=== PATIENT | female | born 1995 | race African-American/Black ===

== ENCOUNTER 2019-05-12 07:07 | Emergency (ER) | payer MEDICAID ==
[2019-05-12 07:26] VITALS: BP 126/92
--- NOTE | 2019-05-12 07:57 | ED Physician Documentation ---
PD HPI NVD - Stated complaint Stated Complaint: STOMACH PX - Chief complaint Chief Complaint: Abd Pain - History obtained from History obtained from: Patient - History of Present Illness Timing - onset: How many months ago (2) Timing - duration: Months (2) Timing - details: Intermittant, Waxing and waning (abdominal cramping, diarrhea and nausea and vomiting) Associated symptoms: No: Fever, Abdominal pain, Chest pain, Hematemesis, Melena, Hematochezia Contributing factors: No: Sick contact, Bad food, Travel, Recent antibiotics Improved by: Other (nothing, used to improve with imodium but that is no longer working for her) Worsened by: Other (every morning) Similar symptoms before: Work up / diagnostics (labs, test, ultrasound of abdomen) Recently seen: Not recently seen - Treatment prior to arrival Treatment prior to arrival: has tried zofran, imodium, antibiotics, dietary modifications Review of Systems Ten Systems: 10 systems reviewed and negative Constitutional: denies: Fever, Chills Cardiac: denies: Chest pain / pressure Respiratory: denies: Dyspnea GI: reports: Abdominal Pain, Nausea, Vomiting, Diarrhea. denies: Hematemesis, Bloody / black stool Skin: reports: Reviewed and negative Endocrine: reports: Reviewed and negative Immunocompromised: reports: Reviewed and negative PD PAST MEDICAL HISTORY - Past Medical History Past Medical History: Yes Psych: Depression - Present Medications Home Medications: Ambulatory Orders Medication Instructions Recorded Confirmed Dicyclomine [Bentyl] 10 mg PO QID PRN #30 capsule 05/12/19 Ondansetron Odt [Zofran Odt] 4 mg PO PRN PRN 05/12/19 05/12/19 Promethazine [Phenergan] 25 mg PO Q6H PRN #15 tab 05/12/19 Sertraline HCl 125 mg PO DAILY 05/12/19 05/12/19 - Allergies Allergies/Adverse Reactions: Allergies Allergy/AdvReac Type Severity Reaction Status Date / Time No Known Drug Allergies Allergy Verified 05/12/19 07:21 - Social History Does the pt smoke?: No Smoking Status: Never smoker PD ED PE NORMAL - Vitals Vital signs reviewed: Yes - General General: Alert and oriented X 3, No acute distress, Well developed/nourished - HEENT HEENT: Atraumatic, Pharynx benign - Neck Neck: Supple, no meningeal sign - Cardiac Cardiac: RRR - Respiratory Respiratory: No respiratory distress - Abdomen Abdomen: Soft, Non tender, Non distended - Female Female : Deferred - Rectal Rectal: Deferred - Derm Derm: Normal color, Warm and dry, No rash - Extremities Extremities: No deformity, No tenderness to palpate, Normal ROM s pain, No edema - Neuro Neuro: Alert and oriented X 3 Eye Opening: Spontaneous Motor: Obeys Commands Verbal: Oriented GCS Score: 15 - Psych Psych: Normal mood, Normal affect Results - Vitals Vitals: Vital Signs - 24 hr 05/12/19 07:22 Temperature 36.8 C Heart Rate 74 Respiratory 16 Rate Blood Pressure 126/92 H O2 Saturation 100 Oxygen O2 Source Room air PD MEDICAL DECISION MAKING - ED course Complexity details: considered differential, d/w patient, d/w family ED course: ddx- ibs, ibd, celiac disease, PUD, parasitic disease 24 y/o F with ongoing diarrhea, abdominal cramping, nausea and vomiting for 2 months with so far negative workup by PCP including basic labs, stool studies, h plyori. Pt likely needs GI referral or trial of empiric therapies for IBS. She has a family hx of IBS. I suspect this may be IBS. Regardless given chronicity doubt utility of emergent labs or imaging. Her abdomen is benign today her vitals are stable. She was provided the name of a GI specialist to discuss with her PCP. Departure - Departure Disposition: 01 Home, Self Care Clinical Impression: Chronic diarrhea of unknown origin Condition: Stable Record reviewed to determine appropriate education?: Yes Instructions: ED Diet Vomiting Diarrhea Follow-Up: Breanna Tovar MD [Provider Admit Priv/Credential] - Prescriptions: Dicyclomine [Bentyl] 10 mg PO QID PRN #30 capsule PRN Reason: Abdominal Pain Promethazine [Phenergan] 25 mg PO Q6H PRN #15 tab PRN Reason: Nausea / Vomiting Comments: You can take bentyl for abdominal cramping or pain. You can take phenergan as needed for nausea and vomiting. You should talk to your doctor about a GI referral. You may consider testing for Celiac disease or IBD. This very well could be IBS in which case treatment with medications like Lotronex for IBS. This medication needs to be prescribed by your PCP or a GI doctor.
== END 2019-05-12 08:21 | disposition home or self-care (01) ==
LOC: ED 07:07
DX: R19.7 Diarrhea, unspecified (principal); R11.2 Nausea with vomiting, unspecified; R10.9 Unspecified abdominal pain; Z83.79 Family history of other diseases of the digestive system
CPT/HCPCS: 99282; 99284

== ENCOUNTER 2022-09-24 17:02 | Emergency (ER) | payer MEDICAID, OTHER ==
[2022-09-24 18:48] LABS: BILIRUBIN,URINE NEGATIVE (NEGATIVE); GLUCOSE, URINE (UA) NEGATIVE (NEGATIVE); KETONES,URINE (UA) NEGATIVE (NEGATIVE); LEUKOCYTE ESTERASE, URINE NEGATIVE (NEGATIVE); NITRITE,URINE NEGATIVE (NEGATIVE); OCCULT BLOOD,URINE TRACE-INTA (NEGATIVE); PROTEIN,URINE NEGATIVE (NEGATIVE); UROBILINOGEN,URINE 0.2 (NORMAL) E.U./dL (NORMAL)
[2022-09-24 18:49] LABS: CLARITY,URINE CLEAR (CLEAR); HCG UR QUAL NEGATIVE
[2022-09-24] MEDS ORDERED: PROCHLORPERAZINE 10 MG/2 ML VIAL IVP STA (19:12)
[2022-09-24] MEDS ORDERED: SODIUM CHLORIDE 0.9% 1,000 ML IV STA (19:15)
[2022-09-24] MEDS ORDERED: diphenhydrAMINE INJ 50 MG/ML VIAL IVP STA (19:15)
--- NOTE | 2022-09-24 19:18 | ED Physician Documentation ---
History of Present Illness - Stated complaint Stated Complaint: MIGRAINE - Chief complaint Chief Complaint: Neuro - Additonal information Additional information: 27-year-old female presents emergency department for evaluation of a headache t hat began 4 days ago. 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 She reports that over the course of the afternoon got steadily worse therefore she left work early and vomited on her way home. Since then she has vomited at least 2-3 more times. This was not a sudden onset headache however she denies any history of headaches preceding this. There have been no fevers though she reports she is recovering from a cold. She is not anticoagulated. She takes no oral contraceptives. No family history of migraines. No focal neurodeficits. Patient does endorse light and noise sensitivity. She is taken Excedrin without relief of symptoms. Review of Systems Constitutional: denies: Fever, Chills, Myalgias, Fatigue Eyes: reports: Photophobia Nose: reports: Reviewed and negative Cardiac: reports: Reviewed and negative Respiratory: reports: Reviewed and negative Neurologic: reports: Headache Psychiatric: reports: Reviewed and negative PD PAST MEDICAL HISTORY - Past Medical History Psych: Depression - Present Medications Home Medications: Ambulatory Orders Medication Instructions Recorded Confirmed Sertraline HCl 100 mg PO DAILY 05/12/19 09/24/22 buPROPion [Wellbutrin Sr] 100 mg PO DAILY 09/24/22 09/24/22 - Allergies Allergies/Adverse Reactions: Allergies Allergy/AdvReac Type Severity Reaction Status Date / Time No Known Drug Allergies Allergy Verified 05/12/19 07:21 - Social History Does the pt smoke?: No Smoking Status: Never smoker PD ED PE NORMAL - General General: Alert and oriented X 3, No acute distress, Well developed/nourished - HEENT HEENT: Atraumatic, Moist mucous membranes - Neck Neck: Supple, no meningeal sign, No adenopathy - Cardiac Cardiac: RRR, No murmur - Respiratory Respiratory: No respiratory distress, Clear bilaterally - Abdomen Abdomen: Normal bowel sounds, Soft - Back Back: No CVA TTP, No spinal TTP - Derm Derm: Normal color, Warm and dry, No rash - Extremities Extremities: No deformity, No tenderness to palpate, Normal ROM s pain, No edema - Neuro Neuro: Alert and oriented X 3, mender knit goods 2-12 intact Eye Opening: Spontaneous Motor: Obeys Commands Verbal: Oriented GCS Score: 15 Results - Vitals Vitals: Vital Signs - 24 hr 09/24/22 09/24/22 17:23 19:26 Temperature 36.5 C Heart Rate 74 86 Respiratory 18 14 Rate Blood Pressure 130/80 105/78 O2 Saturation 100 99 Oxygen O2 Source Room air - Labs Labs: Laboratory Tests 09/24/22 18:30 Urine Color YELLOW Urine Clarity CLEAR Urine pH 6.0 Ur Specific [place] 1.015 Urine Protein NEGATIVE Urine Glucose (UA) NEGATIVE Urine Ketones NEGATIVE Urine Occult Blood TRACE-INTA Urine Nitrite NEGATIVE Urine Bilirubin NEGATIVE Urine Urobilinogen 0.2 (NORMAL) Ur Leukocyte Esterase NEGATIVE Ur Microscopic Review NOT INDICATED Urine Culture Comments NOT INDICATED Urine HCG, Qual NEGATIVE PD MEDICAL DECISION MAKING - ED course Complexity details: reviewed results, re-evaluated patient, considered differential, d/w patient ED course: 27-year-old female presents emergency department for evaluation of headache that began about 4 days ago. No history of headaches or migraine variants in the past and this was not sudden onset. She took Excedrin without relief. She did have some associated light and noise sensitivity. On presentation to the emergency department she appeared well and had no focal neurodeficits. Deferred CT imaging as my suspicion for subarachnoid was rather low. She is recently been getting over head cold and she has no findings to suggest meningitis. Patient does have an IUD in place and is currently completing a cycle of cramping which she associates with her IUD. She reports that she has been told that now needs to be removed and/or replaced. Here in the ER she was given a dose of Compazine and Benadryl with moderate improvement in symptoms. This was then followed by a dose of Decadron. I am discharging the patient home in stable condition to follow closely with her primary care provider for longer-term evaluation and management of headaches which may include rediscussion of OCP use. Emergent worrisome return precautions discussed. Departure - Departure Disposition: 01 Home, Self Care Clinical Impression: Headache Qualifiers: Headache type: unspecified Headache chronicity pattern: acute headache Intractability: not intractable Qualified Code(s): R51.9 - Headache, unspecified Condition: Stable Record reviewed to determine appropriate education?: Yes Instructions: ED Headache Migraine Comments: Michel is seen today in the emergency department because you developed a headache about 4 days ago. Here in the ER your neurological exam is unremarkable and normal. You may be having a headache as a side effect of your cycle. You also are at the 6-year limit for your IUD and would potentially benefit from rediscussion of hormone use to prevent If these were to be related to any type of cycle. Here in the emergency department we did give you some Benadryl and Compazine which seems to be improving the headache. We also gave you a dose of Decadron which should help prevent the headache from reoccurring if this is a migraine variant. In general I would recommend that you take 600 mg of ibuprofen with food 2-3 times a day for headaches or alternate with 500 mg of Tylenol. Return to the ER if you develop any worsening symptoms, have slurred speech, facial droop or sudden weakness in your arms or legs.
[2022-09-24] MEDS ORDERED: DEXAMETHASONE 10 MG/ML VIAL PO STA (20:01)
[2022-09-24] MEDS ORDERED: CHERRY SYRUP 10 ML UDC PO ONE (20:01)
[2022-09-24 20:13] VITALS: BP 125/69
== END 2022-09-24 20:20 | disposition home or self-care (01) ==
LOC: ED 17:02
DX: R51.9 Headache, unspecified (principal); Z97.5 Presence of (intrauterine) contraceptive device
CPT/HCPCS: 81003; 81025; 96361; 96374; 99282; 99284; A9270; J1200; 81001; 87086

== ENCOUNTER 2023-04-19 12:15 | Emergency (ER) | payer MEDICAID ==
[2023-04-19 12:41] LABS: BILIRUBIN,URINE NEGATIVE (NEGATIVE); GLUCOSE, URINE (UA) NEGATIVE (NEGATIVE); KETONES,URINE (UA) NEGATIVE (NEGATIVE); LEUKOCYTE ESTERASE, URINE NEGATIVE (NEGATIVE); NITRITE,URINE NEGATIVE (NEGATIVE); OCCULT BLOOD,URINE TRACE-INTA (NEGATIVE); PH,URINE 6.5 PH (5.0-7.5); PROTEIN,URINE NEGATIVE (NEGATIVE); UROBILINOGEN,URINE 0.2 (NORMAL) E.U./dL (NORMAL)
[2023-04-19 12:46] LABS: BASOPHILS % (AUTO) 0.2 %; EOSINOPHILS % (AUTO) 0.1 %; HCT - HEMATOCRIT 41.2 % (37.0-47.0); HGB - HEMOGLOBIN 13.9 g/dL (12.0-16.0); LYMPHOCYTES # (AUTO) 1.3 10^3/uL (1.5-3.5); LYMPHOCYTES % (AUTO) 14.4 %; MEAN CORPUSCULAR HEMOGLOBIN 31.5 pg (27.0-31.0); MEAN CORPUSCULAR HGB CONC 33.7 g/dL (32.0-36.0); MEAN CORPUSCULAR VOLUME 93.4 fL (81.0-99.0); MEAN PLATELET VOLUME 8.4 fL (7.9-10.8); MONOCYTES # (AUTO) 0.9 10^3/uL (0.0-1.0); MONOCYTES % (AUTO) 9.5 %; NEUTROPHILS # (AUTO) 6.9 10^3/uL (1.5-6.6); NEUTROPHILS % (AUTO) 75.5 %; PLT - PLATELET COUNT 346 10^3/uL (130-450); RED BLOOD COUNT 4.41 10^6/uL (4.20-5.40); RED CELL DISTRIBUTION WIDTH 12.4 % (12.0-15.0); WHITE BLOOD COUNT 9.1 x10^3/uL (4.8-10.8)
[2023-04-19 12:50] LABS: CLARITY,URINE CLEAR (CLEAR); HCG UR QUAL NEGATIVE
[2023-04-19 13:05] LABS: ALBUMIN 4.6 g/dL (3.2-5.5); ALBUMIN/GLOBULIN RATIO 1.3 (1.0-2.2); ALKALINE PHOSPHATASE 50 IU/L (42-121); ALT ALANINE AMINOTRANSFERASE 15 IU/L (10-60); AST ASPARTATE AMINOTRANSFERASE 19 IU/L (10-42); BILIRUBIN,TOTAL 0.6 mg/dL (0.2-1.0); BUN - BLOOD UREA NITROGEN < 5 mg/dL (6-20); CALCIUM 9.2 mg/dL (8.5-10.3); CARBON DIOXIDE - CO2 26 mmol/L (21-32); CHLORIDE 104 mmol/L (101-111); CREATININE 0.6 mg/dL (0.4-1.0); GFR - MDRD 145 (>89); GLUCOSE 122 mg/dL (70-100); LIPASE 26 U/L (22-51); POTASSIUM 3.4 mmol/L (3.5-5.0); SODIUM 138 mmol/L (135-145); TOTAL PROTEIN 8.1 g/dL (6.7-8.2)
--- NOTE | 2023-04-19 13:44 | ED Physician Documentation ---
PD HPI ABD PAIN - Stated complaint Stated Complaint: ABD PX,SHAKES,GEN WEAKNESS - Chief complaint Chief Complaint: Abd Pain - History obtained from History obtained from: Patient - History of Present Illness Timing - onset: How many days ago (10/19) Timing - duration: Days Timing - details: Abrupt onset (she had couple of shots of vodka and felt onset of nausea with vomiting shortly after (1-2 hours). however had some cramping abd pain and soft stool /diarrhea.), Still present (her vomiting has stopped but still nauseated. SOme look stools. Abd pain intermittent and diffuse crampy. She is concerned about the duration of symptoms and still feeling ill with attempting pO intake.) Quality: Cramping, Aching, Pain Location: All over / everywhere, Periumbilical Radiation: No: Lower back, Left flank, Right flank Improved by: No: Vomiting Worsened by: No: Eating, Breathing Associated symptoms: Nausea, Vomiting, Diarrhea. No: Fever, Dysuria Similar symptoms before: Has not had sx before Recently seen: Not recently seen Review of Systems Constitutional: denies: Fever, Chills, Myalgias Nose: denies: Rhinorrhea / runny nose, Congestion Throat: denies: Sore throat Cardiac: denies: Chest pain / pressure, Palpitations Respiratory: denies: Dyspnea, Cough PD PAST MEDICAL HISTORY - Past Medical History Cardiovascular: None Respiratory: None GI: None CLINICAL RESEARCH ASSOCIATE: None Psych: Depression - Present Medications Home Medications: Ambulatory Orders Medication Instructions Recorded Confirmed Sertraline HCl 100 mg PO DAILY 05/12/19 04/19/23 buPROPion [Wellbutrin Sr] 100 mg PO DAILY 09/24/22 04/19/23 Ondansetron Odt [Zofran] 4 mg TL Q6H PRN #10 tablet 04/19/23 - Allergies Allergies/Adverse Reactions: Allergies Allergy/AdvReac Type Severity Reaction Status Date / Time No Known Drug Allergies Allergy Verified 04/19/23 12:19 - Social History Does the pt smoke?: No Smoking Status: Never smoker PD ED PE NORMAL - Vitals Vital signs reviewed: Yes - General General: Alert and oriented X 3, No acute distress, Well developed/nourished - HEENT HEENT: Pharynx benign - Neck Neck: Supple, no meningeal sign, No adenopathy - Cardiac Cardiac: RRR, No murmur - Respiratory Respiratory: No respiratory distress - Abdomen Abdomen: Normal bowel sounds, Soft, Non tender, Non distended, No organomegaly - Derm Derm: Normal color, Warm and dry - Extremities Extremities: Normal ROM s pain - Neuro Neuro: Alert and oriented X 3, No motor deficit, Normal speech Results - Vitals Vitals: Vital Signs - 24 hr 04/19/23 04/19/23 04/19/23 12:19 13:58 15:00 Temperature 37.1 C 37.0 C Heart Rate 88 88 86 Respiratory 16 20 16 Rate Blood Pressure 136/76 H 116/72 118/70 O2 Saturation 98 100 100 Oxygen O2 Source Room air - Labs Labs: Laboratory Tests 04/19/23 04/19/23 04/19/23 12:35 12:42 12:42 WBC 9.1 RBC 4.41 Hgb 13.9 Hct 41.2 MCV 93.4 MCH 31.5 H MCHC 33.7 RDW 12.4 Plt Count 346 MPV 8.4 Neut # (Auto) 6.9 H Lymph # (Auto) 1.3 L [place] # (Auto) 0.9 Eos # (Auto) 0.0 Baso # (Auto) 0.0 Absolute Nucleated RBC 0.00 Nucleated RBC % 0.0 Sodium 138 Potassium 3.4 L Chloride 104 Carbon Dioxide 26 Anion Gap 8.0 BUN < 5 L Creatinine 0.6 Estimated GFR (MDRD) 145 Glucose 122 H Calcium 9.2 Total Bilirubin 0.6 AST 19 ALT 15 Alkaline Phosphatase 50 Total Protein 8.1 Albumin 4.6 Globulin 3.5 Albumin/Globulin Ratio 1.3 Lipase 26 Urine Color LIGHT YELLOW Urine Clarity CLEAR Urine pH 6.5 Ur Specific [place] 1.010 Urine Protein NEGATIVE Urine Glucose (UA) NEGATIVE Urine Ketones NEGATIVE Urine Occult Blood TRACE-INTA Urine Nitrite NEGATIVE Urine Bilirubin NEGATIVE Urine Urobilinogen 0.2 (NORMAL) Ur Leukocyte Esterase NEGATIVE Ur Microscopic Review NOT INDICATED Urine Culture Comments NOT INDICATED Urine HCG, Qual NEGATIVE PD Medical Decision Making - ED course Complexity details: considered differential (has GE type symptoms. Onset after some alochol with friends. However I don't think all the symptosm would come from that. Nause and vomiting most likely. Otherwise concern about infectious cause (such as viral GE). ), d/w patient ED course: she does not have any tenderness, and in particular no focal tenderrness RLQ. Shared ddecision with patient to not do testing at this time and treat syptoms. Departure - Departure Disposition: 01 Home, Self Care Clinical Impression: Nausea vomiting and diarrhea Condition: Stable Record reviewed to determine appropriate education?: Yes Instructions: ED Diet Vomiting Diarrhea Prescriptions: Ondansetron Odt [Zofran] 4 mg TL Q6H PRN #10 tablet PRN Reason: Nausea / Vomiting Comments: This sounds most likely a viral illness with the symptoms you have. It could have been irritated by the alcohol use. Clinically I do not get a sense of there being gallbladder or appendix issues at this time. I would suggest kind of bland food and frequent fluids. Ondansetron if needed for nausea. Add in some antacid such as Maalox or Mylanta. You can use [id number] Imodium if needed for diarrhea. I would anticipate improvement over the next couple of days. Rest as needed. I sent prescription for the ondansetron to the [facility] pharmacy in [place]. Recheck if not improved over the next 1 or 2 days. Recheck or return if you develop localized pain, repetitive vomiting, bloody stools, fever or other concerns. Forms: Activity restrictions Discharge Date/Time: 04/19/23 15:35
[2023-04-19] MEDS ORDERED: LOPERAMIDE 2 MG CAPSULE PO STA (14:19)
[2023-04-19] MEDS ORDERED: MAG HYDROX/AL HYDROX/SIMETH 30 ML UDC PO STA (14:19)
[2023-04-19] MEDS ORDERED: ONDANSETRON ODT 4 MG TABLET TL STA (14:19)
[2023-04-19 15:40] VITALS: BP 118/70
== END 2023-04-19 15:35 | disposition home or self-care (01) ==
LOC: ED 12:15
DX: R11.2 Nausea with vomiting, unspecified (principal); R19.7 Diarrhea, unspecified
CPT/HCPCS: 36415; 80053; 81003; 81025; 83690; 85025; 99283; 99284; A9270; Q0162; 81001; 87086

== ENCOUNTER 2023-04-21 06:17 | Emergency (ER) | payer MEDICAID ==
--- NOTE | 2023-04-21 07:06 | ED Physician Documentation ---
History of Present Illness - Stated complaint Stated Complaint: CHEST/ABD PX - Chief complaint Chief Complaint: Cardiac - Additonal information Additional information: Patient is 28-year-old female presenting to the emergency department with multiple complaints including abdominal pain, left-sided chest pain, constipation, tremulousness, nausea, generalized weakness. Symptoms of been ongoing x8 days. Was initially seen here 04/19. At that time had benign work-up. Returns today for persistent symptoms. Reports has had symptoms like this in the past but never this severe. States that they have been ongoing for greater than the last 10 years. Reports infrequent alcohol use but does report daily marijuana use. States was on sertraline but went off of this medication herself approximately 1 month ago. Does report that she tapered from 200 mg to 100 mg prior to discontinuing the medication. This could discontinuation was not in conjunction with her primary care doctor and she reports that her primary care doctor moved to [place] and she does not currently have a PCP. Otherwise she takes a Nexplanon implant but no other prescription medications or supplements. PD PAST MEDICAL HISTORY - Past Medical History Past Medical History: Yes Cardiovascular: None Respiratory: None GI: None DIRT SHOVELER: None Psych: Depression - Past Surgical History Past Surgical History: No - Present Medications Home Medications: Ambulatory Orders Medication Instructions Recorded Confirmed Pantoprazole Sodium [Protonix] 20 mg PO DAILY #30 tab 04/21/23 - Allergies Allergies/Adverse Reactions: Allergies Allergy/AdvReac Type Severity Reaction Status Date / Time No Known Drug Allergies Allergy Verified 04/21/23 06:34 - Social History Does the pt smoke?: No Smoking Status: Never smoker Does the pt drink ETOH?: No Does the pt have substance abuse?: No - Immunizations Immunizations are current?: Yes - POLST Patient has POLST: No PD ED PE NORMAL - Vitals Vital signs reviewed: Yes - General General: Alert and oriented X 3, No acute distress, Other (Anxious affect) - HEENT HEENT: Atraumatic - Neck Neck: Supple, no meningeal sign - Cardiac Cardiac: RRR - Respiratory Respiratory: No respiratory distress, Clear bilaterally - Abdomen Abdomen: Normal bowel sounds, Soft, Non tender - Female Female : Deferred - Rectal Rectal: Deferred - Back Back: No CVA TTP - Derm Derm: Normal color - Extremities Extremities: No deformity Results - Vitals Vitals: Vital Signs - 24 hr 0704/21/23 04/21/23 06:20 06:29 06:53 Temperature 36.8 C Heart Rate 92 81 Respiratory 16 16 Rate Blood Pressure 121/74 117/70 Blood Pressure 117/70 [Left] Blood Pressure 121/74 [Right] O2 Saturation 98 100 04/21/23 08:32 Temperature Heart Rate 80 Respiratory 10 L Rate Blood Pressure 108/71 Blood Pressure [Left] Blood Pressure [Right] O2 Saturation 99 Oxygen O2 Source Room air - EKG (time done) 0706 EKG releavant findings:: EKG personally interpreted by author of this note. Relevant findings are: Sinus rhythm with rate 105 bpm. Normal axis. Normal CA, QRS, QTc intervals. No ST segment elevations. Nonspecific ST and T wave abnormalities. - Labs Labs: Laboratory Tests 04/21/23 04/21/23 04/21/23 07:05 07:05 07:05 WBC 8.6 RBC 4.30 Hgb 13.5 Hct 40.1 MCV 93.3 MCH 31.4 H MCHC 33.7 RDW 12.5 Plt Count 330 MPV 8.8 Neut # (Auto) 6.1 Lymph # (Auto) 1.7 [place] # (Auto) 0.7 Eos # (Auto) 0.0 Baso # (Auto) 0.0 Absolute Nucleated RBC 0.00 Nucleated RBC % 0.0 D-Dimer Sodium 138 Potassium 3.6 Chloride 104 Carbon Dioxide 25 Anion Gap 9.0 BUN 5 L Creatinine 0.6 Estimated GFR (MDRD) 145 Glucose 112 H Calcium 9.1 Total Bilirubin 0.9 AST 12 ALT 12 Alkaline Phosphatase 46 Troponin I High Sens < 2.3 L Total Protein 7.5 Albumin 4.1 Globulin 3.4 Albumin/Globulin Ratio 1.2 Lipase 26 Urine Color Urine Clarity Urine pH Ur Specific [place] Urine Protein Urine Glucose (UA) Urine Ketones Urine Occult Blood Urine Nitrite Urine Bilirubin Urine Urobilinogen Ur Leukocyte Esterase Urine RBC Urine WBC Ur Squamous Epith Cells Amorphous Sediment Urine Bacteria Ur Microscopic Review Urine Culture Comments Urine HCG, Qual Ethyl Alcohol < 5.0 04/21/23 04/21/23 07:05 07:30 WBC RBC Hgb Hct MCV MCH MCHC RDW Plt Count MPV Neut # (Auto) Lymph # (Auto) [place] # (Auto) Eos # (Auto) Baso # (Auto) Absolute Nucleated RBC Nucleated RBC % D-Dimer < 200.0 L Sodium Potassium Chloride Carbon Dioxide Anion Gap BUN Creatinine Estimated GFR (MDRD) Glucose Calcium Total Bilirubin AST ALT Alkaline Phosphatase Troponin I High Sens Total Protein Albumin Globulin Albumin/Globulin Ratio Lipase Urine Color YELLOW Urine Clarity HAZY Urine pH 7.5 Ur Specific [place] 1.015 Urine Protein NEGATIVE Urine Glucose (UA) NEGATIVE Urine Ketones TRACE Urine Occult Blood NEGATIVE Urine Nitrite NEGATIVE Urine Bilirubin NEGATIVE Urine Urobilinogen 0.2 (NORMAL) Ur Leukocyte Esterase NEGATIVE Urine RBC 0-5 Urine WBC 0-3 Ur Squamous Epith Cells FEW Squamous Amorphous Sediment Few Urine Bacteria Few Ur Microscopic Review INDICATED Urine Culture Comments NOT INDICATED Urine HCG, Qual NEGATIVE Ethyl Alcohol PD Medical Decision Making - ED course Complexity details: reviewed old records, reviewed results, re-evaluated patient, considered differential, d/w patient ED course: Patient is 28-year-old female presenting to the emergency department with multiple complaints including chest pain, shortness of breath, nausea, tremulousness. Seen here a few days ago and at that time had benign work-up. On arrival to the emergency department was afebrile, he medically stable. No focal tenderness noted on abdominal exam. Clear aeration in all lung tse. EKG is outlined above was negative indications of acute cardiac ischemia or dysrhythmia. Troponin negative. Labs all within normal limits are generally nonactionable. Chest x-ray and CT abdomen pelvis negative for acute thoracic or intra-abdominal pathology. Patient monitored in the emergency department for several hours with no change in vitals or otherAcute symptoms. Encourage patient to find a primary care doctor. Will discharge with Protonix and medications to help with her reported constipation. Encouraged them to fill the prescription they had on their previous visit for nausea. Departure - Departure Disposition: 01 Home, Self Care Clinical Impression: Atypical chest pain, Nausea Abdominal pain Qualifiers: Abdominal location: unspecified location Qualified Code(s): R10.9 - Unspecified abdominal pain Prescriptions: Pantoprazole Sodium [Protonix] 20 mg PO DAILY #30 tab
[2023-04-21] MEDS ORDERED: SODIUM CHLORIDE 0.9% 1,000 ML IV STA (07:16)
[2023-04-21 07:33] LABS: BASOPHILS % (AUTO) 0.4 %; EOSINOPHILS % (AUTO) 0.2 %; HCT - HEMATOCRIT 40.1 % (37.0-47.0); HGB - HEMOGLOBIN 13.5 g/dL (12.0-16.0); LYMPHOCYTES # (AUTO) 1.7 10^3/uL (1.5-3.5); LYMPHOCYTES % (AUTO) 19.3 %; MEAN CORPUSCULAR HEMOGLOBIN 31.4 pg (27.0-31.0); MEAN CORPUSCULAR HGB CONC 33.7 g/dL (32.0-36.0); MEAN CORPUSCULAR VOLUME 93.3 fL (81.0-99.0); MEAN PLATELET VOLUME 8.8 fL (7.9-10.8); MONOCYTES # (AUTO) 0.7 10^3/uL (0.0-1.0); MONOCYTES % (AUTO) 8.3 %; NEUTROPHILS # (AUTO) 6.1 10^3/uL (1.5-6.6); NEUTROPHILS % (AUTO) 71.6 %; PLT - PLATELET COUNT 330 10^3/uL (130-450); RED CELL DISTRIBUTION WIDTH 12.5 % (12.0-15.0); WHITE BLOOD COUNT 8.6 x10^3/uL (4.8-10.8)
[2023-04-21 07:37] LABS: BILIRUBIN,URINE NEGATIVE (NEGATIVE); GLUCOSE, URINE (UA) NEGATIVE (NEGATIVE); KETONES,URINE (UA) TRACE mg/dL (NEGATIVE); LEUKOCYTE ESTERASE, URINE NEGATIVE (NEGATIVE); NITRITE,URINE NEGATIVE (NEGATIVE); OCCULT BLOOD,URINE NEGATIVE (NEGATIVE); PH,URINE 7.5 PH (5.0-7.5); PROTEIN,URINE NEGATIVE (NEGATIVE); UROBILINOGEN,URINE 0.2 (NORMAL) E.U./dL (NORMAL)
[2023-04-21 07:38] LABS: ALBUMIN 4.1 g/dL (3.2-5.5); ALBUMIN/GLOBULIN RATIO 1.2 (1.0-2.2); ALKALINE PHOSPHATASE 46 IU/L (42-121); ALT ALANINE AMINOTRANSFERASE 12 IU/L (10-60); AST ASPARTATE AMINOTRANSFERASE 12 IU/L (10-42); BILIRUBIN,TOTAL 0.9 mg/dL (0.2-1.0); BUN - BLOOD UREA NITROGEN 5 mg/dL (6-20); CALCIUM 9.1 mg/dL (8.5-10.3); CARBON DIOXIDE - CO2 25 mmol/L (21-32); CHLORIDE 104 mmol/L (101-111); CREATININE 0.6 mg/dL (0.4-1.0); ETOH - ETHANOL < 5.0 mg/dL; GFR - MDRD 145 (>89); GLUCOSE 112 mg/dL (70-100); LIPASE 26 U/L (22-51); POTASSIUM 3.6 mmol/L (3.5-5.0); SODIUM 138 mmol/L (135-145); TOTAL PROTEIN 7.5 g/dL (6.7-8.2)
[2023-04-21 07:42] LABS: CLARITY,URINE HAZY (CLEAR); HCG UR QUAL NEGATIVE
[2023-04-21 07:48] LABS: AMORPHOUS SEDIMENT,UR Few /LPF; BACTERIA,URINE Few /HPF (None Seen); RBC,URINE 0-5 /HPF (0-5); SQUAMOUS EPITHELIAL CELL,UR FEW Squamous (<= Few); WBC,URINE 0-3 /HPF (0-5)
[2023-04-21] MEDS ORDERED: iohexoL-300 100 ML VIAL ONE (07:50)
--- NOTE | 2023-04-21 08:28 | XRAY Report ---
PROCEDURE: Chest 2 View X-Ray INDICATIONS: cough TECHNIQUE: 2 views of the chest were acquired. COMPARISON: None. FINDINGS: Surgical changes and devices: None. Lungs and pleura: No pleural effusions or pneumothorax. Lungs are clear. Mediastinum: Mediastinal contours appear normal. Heart size is normal. Bones and chest wall: No suspicious bony lesions. Overlying soft tissues appear unremarkable. IMPRESSION: No acute cardiopulmonary process. Reviewed by: Nav Dick on 04/21/2023 8:26 AM PDT Approved by: Nav Dick on 04/21/2023 8:26 AM PDT Station ID: [id number]
--- NOTE | 2023-04-21 08:30 | CT Report ---
PROCEDURE: ABDOMEN/PELVIS W INDICATIONS: abd pain CONTRAST: 100ml Omnipaque 300 TECHNIQUE: After the administration of oral and intravenous contrast, 5 mm thick sections acquired from the diap hragms to the symphysis. 5 mm thick coronal and sagittal reformats were acquired. For radiation dos e reduction, the following was used: automated exposure control, adjustment of mA and/or kV accordin g to patient size. COMPARISON: None FINDINGS: Image quality: Excellent. Lung bases and heart: Unremarkable. Liver: Fat adjacent to the falciform ligament. Gallbladder and biliary tree: Spleen: No splenomegaly. Pancreas: No pancreatic ductal dilation. Adrenals: No adrenal nodule. Kidneys and ureters: No hydronephrosis. No renal cystic lesion which requires follow up. No solid mas s. Bowel and peritoneum: No bowel distension. No pathologic free fluid. Lymph nodes: No central or retroperitoneal adenopathy. Vessels: No infrarenal aortic aneurysm. PELVIS Reproductive organs: Unremarkable. Bladder: No abnormal wall thickening, accounting for underdistension. Pelvic lymph nodes: No pelvic adenopathy by size criteria. Bones: No aggressive osseous abnormality. Other: No significant ventral or inguinal hernia. IMPRESSION: No acute abnormality. Reviewed by: Nav Dick on 04/21/2023 8:29 AM PDT Approved by: Nav Dick on 04/21/2023 8:29 AM PDT Station ID: [id number]
[2023-04-21 08:33] VITALS: BP 108/71
[2023-04-21] MEDS ORDERED: iohexoL-300 100 ML VIAL IVP ONE (15:21)
== END 2023-04-21 09:18 | disposition home or self-care (01) ==
LOC: ED 06:17
DX: R07.89 Other chest pain (principal); R11.0 Nausea; R10.9 Unspecified abdominal pain
CPT/HCPCS: 36415; 71046; 74177; 80053; 80320; 81001; 81025; 83690; 84484; 85025; 85379; 93005; 99284; Q9967; 81003; 87086